=== PATIENT | male | born 1985 | race Caucasian/White ===

== ENCOUNTER 2016-09-13 14:05 | Emergency (ER) | payer OTHER ==
[~2016-09-13] VITALS: Ht 193 cm; Wt 181.9 kg
[2016-09-13 14:06] VITALS: BP 151/90
== END 2016-09-13 17:13 | disposition home or self-care (01) ==
LOC: ED 15:42
DX: K02.9 Dental caries, unspecified (principal); F17.210 Nicotine dependence, cigarettes, uncomplicated; E66.9 Obesity, unspecified; Z68.42 Body mass index [BMI] 45.0-49.9, adult; Z88.0 Allergy status to penicillin; Z88.1 Allergy status to other antibiotic agents
CPT/HCPCS: 71020; 99284

== ENCOUNTER 2016-09-20 23:29 | Emergency (ER) | payer OTHER ==
[~2016-09-20] VITALS: Ht 193 cm; Wt 183.4 kg
[2016-09-21] MEDS ORDERED: SODIUM CHLORIDE FLUSH 10ML SYR IVF ONE
[2016-09-21] MEDS ORDERED: FAMOTIDINE 20 MG/2 ML IVP ONE
[2016-09-21] MEDS ORDERED: ONDANSETRON 2MG/ML, 2ML IVPush ONE
[2016-09-21] MEDS ORDERED: MAALOX/HYOSCYAMINE/LIDOCAINE 45 ML BOTTLE PO ONE
[2016-09-21] MEDS ORDERED: SODIUM CHLORIDE 0.9% 1,000ML IVBOLUS ONE
[2016-09-21 00:12] LABS: HEMOGLOBIN 15.2 g/dL (13.7-18.0)
[2016-09-21 00:26] LABS: ASPARTATE AMINO TRANSFERASE 14 U/L (15-37); BLOOD UREA NITROGEN 14 mg/dL (7-18)
[2016-09-21] MEDS ORDERED: MAALOX/HYOSCYAMINE/LIDOCAINE 45 ML BOTTLE ONE (00:32)
[2016-09-21] MEDS ORDERED: ONDANSETRON 2MG/ML, 2ML ONE (00:33)
[2016-09-21] MEDS ORDERED: FAMOTIDINE 20 MG/2 ML ONE (00:33)
[2016-09-21 00:35] LABS: PATH.CAST-FLAG NOT PRESENT; SPERM-FLAG NOT PRESENT; SRC-FLAG NOT PRESENT; XTAL-FLAG NOT PRESENT; YLC-FLAG NOT PRESENT
[2016-09-21] MEDS ORDERED: TRAM50TA2 PO (00:37)
[2016-09-21] MEDS ORDERED: NAPR500T3 PO (00:38)
[2016-09-21] MEDS ORDERED: DICYCLOMINE 10 MG/ML, 2ML IM ONE (02:00)
[2016-09-21 02:56] VITALS: BP 100/54
== END 2016-09-21 03:02 | disposition home or self-care (01) ==
LOC: ED 23:59
DX: R11.2 Nausea with vomiting, unspecified (principal); R10.84 Generalized abdominal pain
CPT/HCPCS: 36415; 76700; 80053; 81001; 83690; 85025; 96361; 96372; 96374; 96375; 99285; J0500; J2405; J7030; S0028

== ENCOUNTER 2020-04-17 04:16 | Emergency (ER) | payer SELFPAY ==
[~2020-04-17] VITALS: Ht 185.4 cm; Wt 176.7 kg
[~2020-04-17 04:16] MED LIST: NAPR-685 PO; TRAM50TA2 PO
--- NOTE | 2020-04-17 04:30 | NUR ---
Triage note: PT REPORTS "BULGING VEIN" IN LEG FOR SEVERAL MONTHS. "BURST WHILE IN THE SHOWER TONIGHT" LEG WRAPPED IN TOWEL IN TRIAGE.
[2020-04-17] MEDS ORDERED: TRANEXAMIC ACID 100 MG/ML, 10ML TP ONE (05:00)
[2020-04-17] MEDS ORDERED: TRANEXAMIC ACID 100 MG/ML, 10ML ONE (05:02)
[2020-04-17 05:28] LABS: BASOPHILS % (AUTO) 1 % (0-1); EOSINOPHILS % (AUTO) 4 % (1-7); LYMPHOCYTES % (AUTO) 27 % (22-44); MEAN CORPUSCULAR HGB CONC 33.4 g/dL (33.2-36.2); MEAN PLATELET VOLUME 7.8 fL (7.4-10.4); MONOCYTES % (AUTO) 10 % (2-9); NEUTROPHILS % (AUTO) 58 % (42-75); PLATELET COUNT 235 x10^3/uL (130-400); RED BLOOD COUNT 4.96 x10^6/uL (4.38-5.82); RED CELL DISTRIBUTION WIDTH 13.6 % (9.4-14.8)
[2020-04-17 05:39] LABS: MD NO
[2020-04-17 05:41] LABS: ALBUMIN 3.6 g/dL (3.4-5.0); ANION GAP 4 mmol/L (5-15); CALCIUM 8.7 mg/dL (8.5-10.1); CHLORIDE 111 mmol/L (98-107); CREATININE 0.95 mg/dL (0.7-1.3)
--- NOTE | 2020-04-17 06:00 | NUR ---
Irrigated area. Ambulated patient around the unit. Bleeding remained controlled. Bandaged area. Patient to be d/c.
[2020-04-17 06:48] VITALS: BP 123/65
== END 2020-04-17 06:51 | disposition home or self-care (01) ==
LOC: ED 06:11
DX: I83.892 Varicose veins of left lower extremity with other complications (principal); Z88.0 Allergy status to penicillin
CPT/HCPCS: 36415; 80048; 82040; 85025; 99283